=== PATIENT | male | born 1950 | race Caucasian/White ===

== ENCOUNTER 2016-09-19 16:38 | Outpatient (CLI) | payer OTHER ==
[2015-06-15 01:02] VITALS: BP 145/77
== END 2016-09-19 16:44 | disposition home or self-care (01) ==
LOC: LAB 16:38
PROVIDERS: ATTEND Family Medicine
DX: Z12.5 Encounter for screening for malignant neoplasm of prostate (principal)
CPT/HCPCS: 36415; 84153

== ENCOUNTER 2019-08-20 14:38 | Outpatient (CLI) | payer MEDICARE, OTHER ==
[2015-06-15 01:02] VITALS: BP 145/77
--- NOTE | 2019-08-20 15:18 | Diagnostic Imaging Report ---
PATIENT MR#: [id number] PATIENT PATIENT NAME: TOMMY CARLSON DATE OF : 1950 REFERRING PHYSICIAN: FLORECITA TORRES EXAM DATE: 08/20/2019 ACCESSION NUMBER: [id number] EXAM DESCRIPTION: BILAT ANKLES 3 VIEW CLINICAL HISTORY: CHRONIC ANKLE PAIN, WORSE ON THE RT SIDE FOR 20 YEARS COMPARISON: No study for comparison is available at the time of interpretation. TECHNIQUE: DX bilateral ankles, 3 views each RIGHT ANKLE Osseous structures: The osseous structures are normal with no evidence of fracture or dislocation. Joint spaces: Large dorsal degenerative osteophytes of the talonavicular and naviculocuneiform articu lations. The ankle mortices are preserved bilaterally. Soft tissues: There is mild edema of the soft tissues. LEFT ANKLE Osseous structures: The osseous structures are normal with no evidence of fracture or dislocation. Th ere is no osseous lesion or periosteal reaction. Joint spaces: The bones are well aligned. No articular surface abnormality is noted. Soft tissues: There is normal appearance of the soft tissues. IMPRESSION: 1. Normal bilateral ankle joints. 2. 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 3. Bilateral posterior and plantar calcaneal spurs. Read by: Dr. Perez Pittman Transcribed by: Perez Pittman Transcribed Date: 08/20/2019 3:17:51 PM Electronically signed by: Dr. Perez Pittman Date signed: 08/20/2019 3:17:56 PM
--- NOTE | 2019-08-20 15:28 | Diagnostic Imaging Report ---
PATIENT MR#: [id number] PATIENT PATIENT NAME: TOMMY CARLSON DATE OF : 1950 REFERRING PHYSICIAN: FLORECITA TORRES EXAM DATE: 08/20/2019 ACCESSION NUMBER: [id number] EXAM DESCRIPTION: FOOT 3 VIEWS OR MORE CLINICAL HISTORY: RT 1ST TOE PAIN COMPARISON: No study for comparison is available at the time of interpretation. TECHNIQUE: DX right foot, 3 views Osseous structures: No acute fracture. Flattening of the 1st metatarsal head at the MTP joint. Planta r calcaneal spur at the plantar fascia insertion, which may predispose to plantar fasciitis. Posterior calcaneal spur at the Achilles tendon insertion, which may indicate Achilles tendinosis. Joint spaces: Severe degenerative arthrosis of the 1st MTP joint, with flattening of the metatarsal h ead and large subcortical cysts of the metatarsal and proximal phalanx. There is advanced degenerative arthrosis of the calcaneocuboid, talonavicular and intertarsal joints, with large dorsal osteophytes. Soft tissues: There is soft tissue edema of the foot. IMPRESSION: 1. 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 2. Severe arthrosis of the midfoot articulations, with large dorsal osteophytes. 3. Posterior and plantar calcaneal spurs. 4. Diffuse soft tissue edema. Read by: Dr. Perez Pittman Transcribed by: Perez Pittman Transcribed Date: 08/20/2019 3:28:04 PM Electronically signed by: Dr. Perez Pittman Date signed: 08/20/2019 3:28:04 PM
== END 2019-08-20 14:48 ==
LOC: RAD 14:38
PROVIDERS: ATTEND Podiatrist Foot & Ankle Surgery
DX: G89.29 Other chronic pain (principal); M25.571 Pain in right ankle and joints of right foot; M79.674 Pain in right toe(s)
CPT/HCPCS: 73630